=== PATIENT | male | born 1995 | race African-American/Black ===

== ENCOUNTER 2022-03-06 18:16 | Emergency (ER) | payer SELFPAY ==
[2022-03-06 18:17] VITALS: BP 141/96; PULSE 77; RESP 16; TEMP 35.8; O2SAT 99; BMI 25.1
--- NOTE | 2022-03-06 19:16 | EDS_ITS ---
HPI History of Present Illness Chief Complaint: Substance Abuse Informant: patient and spouse/S.O. Narrative Narrative: Patient presents after referral from [facility]. Patient states he uses fentanyl. He snorts it. He has never injected it. He last used somewhere between 4 and 5 days ago. He states sometimes when he does not use he gets a bit pang and agitated. At first he denied diarrhea but then he states he might get a little bit. He is not having any of the symptoms now. He feels relaxed. He has high blood pressure and hypothyroidism. He is on amlodipine and Synthroid. He has been taking these as prescribed. He has no physical compl aints. [facility] Medical History Fentanyl dependence Allergy/AdvReac Type Severity Reaction Status Date / Time No Known Allergies Allergy Verified 03/06/22 18:18 Social History Smoking Status: Current every day smoker tobacco type: cigarettes ROS ROS ED Constitutional Constitutional ED: Denies chills, fever(s) or sweats Eyes Eyes: Denies change in vision ENT ENT ED: Denies rhinorrhea Cardiovascular Cardiovascular: Denies chest pain, palpitations or racing heartbeat Respiratory/Chest Respiratory/Chest: Denies cough or dyspnea Gastrointestinal Gastrointestinal: Denies diarrhea, nausea or vomiting Genitourinary Genitourinary ED: Denies urinary frequency Musculoskeletal Musculoskeletal: Denies arthralgias or myalgias Integumentary Denies rash Neurologic Neurologic: Denies headache(s) or paresthesias Psychiatric Psychiatric: Denies anxiety or depression Endocrine Endocrinology: Denies polydipsia or polyuria Allergic/Immunologic Allergic/Immunologic ED: Denies urticaria EXAM Physical Exam Const Vital Signs: 03/06/22 18:17 Temperature 96.4 F L Temperature Source Temporal Pulse Rate 77 Respiratory Rate 16 Blood Pressure 141/96 H Blood Pressure Mean 111 Pulse Ox 99 Oxygen Delivery Method Room Air Positive well nourished and well developed Constitutional Narrative: Patient is lying quietly in bed. He is looking at his phone. He appears relaxed and calm. General Appearance ED: well developed and NAD HEENT Reports moist mucous membranes; Denies dry mucous membranes Mouth ED: No dry mucous membranes Mouth: No dry mucous membranes Eyes General Eye ED: Negative for pale conjunctiva or scleral icterus Neck no lymphadenopathy Lymph Lymphatic: no lymphadenopathy noted Chest Wall inspection of chest normal Resp normal respiratory effort and clear to auscultation bilaterally Cardio regular rate, regular rhythm and no murmurs Cardio Narrative: Heart rate is normal. No tachycardia. GI soft to palpation, non-tender, non-distended and no masses GI Narrative: Normal bowel sounds. Back/Spine no CVA tenderness Extremity General Extremety ED: Negative for edema or tenderness General Extremity: Negative for edema Neuro oriented x3 Sensorium / Orientation: Negative for confused, lethargic or stuporous Psych mental status grossly normal Psych Narrative: Patient is calm and relaxed. Skin General Skin Exam: Negative for jaundice Lesions: no lesions Rashes: no rashes MDM MDM MDM Narrative Medical decision making narrative: This patient has normal vitals. He is not having symptoms. His last use of fentanyl was 4 or 5 days ago. I do not think he needs to be admitted for detox at this point. I think long-term treatment is needed though. Patient is medically cleared for [facility] and fentanyl/opioid outpatient treatment. Discharge Plan Triage Chief Complaint: Substance Abuse ED Provider: Donavon Perez Dx/Rx/DC Orders Clinical Impression: Opioid abuse Instructions: ED Opiate Abuse, ED Opioid Withdrawal Primary Care Provider: Care Physician,No Primary Referrals: Rudy Lopes MD [Med Staff - Senior Statistician] - As Needed Care Physician,No Primary [Primary Care Provider] - Activity Restrictions/Additional Instructions: Follow-up with the [facility] for ongoing treatment. You are medically cleared and appropriate for this program Disposition Disposition: Home, Self Care
== END 2022-03-06 19:47 | disposition home or self-care (01) ==
PROVIDERS: Emergency Provider Emergency Medicine; Visit Provider Emergency Medicine
DX: F11.10 Opioid abuse, uncomplicated (principal); E03.9 Hypothyroidism, unspecified; F17.210 Nicotine dependence, cigarettes, uncomplicated; R03.0 Elevated blood-pressure reading, without diagnosis of hypertension
CPT/HCPCS: 99282